=== PATIENT | male | born 1985 | race Caucasian/White ===

== ENCOUNTER 2019-03-18 14:46 | Emergency (ER) | payer OTHER ==
[2019-03-18 14:52] VITALS: BP 123/76; PULSE 87
[2019-03-18] MEDS ORDERED: Lidocaine 2% with EPINEPHrine 1:100,000 20 ML MDV INJECT ONE (15:12)
[2019-03-18] MEDS ORDERED: Bacitracin/Neomycin/Polymyxin B Oint 0.9 GM U/D Packet TOP ONE (15:59)
[2019-03-18] MEDS ORDERED: Diphtheria,Pertussis(Acell),Tetanus Vaccine 0.5 ML SDV IM ONE (16:00)
--- NOTE | 2019-03-18 16:07 | EDM.PDOC ---
ED HPI GENERAL MEDICAL PROBLEM - General Chief Complaint: Laceration Stated Complaint: fall, left knee pain, laceration Time Seen by Provider: 03/18/19 15:10 Source of Information: Reports: Patient History Limitations: Reports: No Limitations - History of Present Illness INITIAL COMMENTS - FREE TEXT/NARRATIVE: Patient is a 33-year-old who is seen in the ER with chief complaint of laceration over the inferior pole of the left knee Patient states that he was standing on a palate on a [place] where he fell off the palate hitting his left knee on the edge of the garbage can he states that he is in pain x-rays obtained of the left knee revealed no fractures small laceration about 1-1-1/2 cm area was prepped and draped 1% lidocaine applied and the wound explored no foreign bodies were seen Onset: Today Duration: Hour(s):, Constant Location: Reports: Lower Extremity, Left Quality: Reports: Ache, Stabbing Severity: Mild Improves with: Reports: Cold Therapy Worsens with: Reports: Movement Context: Reports: Trauma Associated Symptoms: Reports: Diaphoresis (On arrival) Treatments [facility]: Reports: NSAIDS Left Knee Pain Score (Numeric/FACES): 8 - Related Data Allergies Allergy/AdvReac Type Severity Reaction Status Date / Time No Known Allergies Allergy Verified 03/18/19 14:52 Home Meds: Home Meds Hydrocodone/Acetaminophen [Hydrocodon-Acetaminophen 5-325] 1 each PO Q6H PRN [History] Diclofenac Sodium [Voltaren] 75 mg PO DAILY 03/18/19 [History] Phentermine HCl 30 mg PO DAILY 03/18/19 [History] Past Medical History Genitourinary History: Reports: Renal Calculus Musculoskeletal History: Reports: Back Pain, Chronic, Other (See Below) Other Musculoskeletal History: fx back as [place] in [place] - Infectious Disease History Infectious Disease History: Reports: Chicken Pox Social & Family History - Tobacco Use Smoking Status *Q: Current Every Day Smoker Years of Tobacco use: 10 Packs/Tins Daily: 0.5 - Caffeine Use Caffeine Use: Reports: Energy Drinks - Recreational Drug Use Recreational Drug Use: No - Living Situation & Occupation Living situation: Reports: Occupation: Employed Review of Systems - Review of Systems Review Of Systems: See Below Constitutional: Reports: No Symptoms Eyes: Reports: No Symptoms Ears: Reports: No Symptoms Nose: Reports: No Symptoms Mouth/Throat: Reports: No Symptoms Respiratory: Reports: No Symptoms Cardiovascular: Reports: No Symptoms GI/Abdominal: Reports: No Symptoms Genitourinary: Reports: No Symptoms Musculoskeletal: Reports: No Symptoms Skin: Reports: No Symptoms Neurological: Reports: No Symptoms Psychiatric: Reports: No Symptoms ED EXAM, GENERAL - Physical Exam Exam: See Below Exam Limited By: No Limitations General Appearance: Alert, WD/WN, No Apparent Distress Ears: Normal External Exam, Normal Canal, Hearing Grossly Normal, Normal TMs Ear Exam: Bilateral Ear: Auricle Normal, Canal Normal, TM normal Nose: Normal Inspection, Normal Mucosa, No Blood Throat/Mouth: Normal Inspection, Normal Lips, Normal Teeth, Normal Gums, Normal Oropharynx, Normal Voice, No Airway Compromise Head: Atraumatic, Normocephalic Neck: Normal Inspection, Supple, Non-Tender, Full Range of Motion Respiratory/Chest: No Respiratory Distress, Lungs Clear, Normal Breath Sounds, No Accessory Muscle Use, Chest Non-Tender Cardiovascular: Normal Peripheral Pulses GI/Abdominal: Normal Bowel Sounds, Soft, Non-Tender, No Organomegaly, No Distention, No Abnormal Bruit, No Mass (Male) Exam: Deferred Rectal (Males) Exam: Deferred Back Exam: Normal Inspection, Full Range of Motion, NT Extremities: Joint Swelling, Leg Pain, Limited Range of Motion Neurological: Alert, Oriented, CN II-XII Intact, Normal Cognition, Normal Gait, Normal Reflexes, No Motor/Sensory Deficits Psychiatric: Normal Affect, Normal Mood Skin Exam: Wound/Incision (Clean) Lymphatic: No Adenopathy ED TRAUMA EXTREMITY PROCEDURES - Laceration/Wound Repair Left Medial Knee Appearance: Superficial, Linear, Clean Distal NVT: Neuro & Vascular Intact, No Tendon Injury Anesthetic Type: Local Local Anesthesia - Lidocaine (Xylocaine): 2% Plain Local Anesthetic Volume: 5cc Skin Prep: Chlorhexidine (Hibiciens) Exploration/Debridement/Repair: Wound Explored (No foreign bodies wound was irrigated clean) Closed With: Sutures Suture Size: 3-0 # of Sutures: 2 Suture Type: Nylon Course - Vital Signs Last Recorded V/S: Last Vital Signs Temp 98.1 F 03/18/19 14:46 Pulse 87 03/18/19 14:46 Resp 24 H 03/18/19 14:46 BP 123/76 03/18/19 14:46 Pulse Ox 100 07/30/19 14:46 - Orders/Labs/Meds Orders: Active Orders 24 hr Category Date Time Status Vaccines to be Administered [RC] PER UNIT ROUTINE Care 03/18/19 16:00 Ordered Knee 1V or 2V Lt [CR] Stat Exams 03/18/19 15:18 Taken Meds: Medications Discontinued Medications Generic Name Dose Route Start Last Admin Trade Name Freq PRN Reason Stop Dose Admin Diphtheria/Tetanus/Acell Pertussis 0.5 ml 03/18/19 16:00 Adacel IM 03/18/19 16:01 .ONCE ONE Lidocaine/Epinephrine 20 ml 03/18/19 15:12 Xylocaine 2% With Epinephrine 1:100,000 INJECT 03/18/19 15:13 ONETIME ONE Neomycin/Polymyxin/Bacitracin 1 each 03/18/19 15:59 Triple Antibiotic Oint TOP 03/18/19 16:00 ONETIME ONE Departure - Departure Time of Disposition: 16:10 Disposition: Home, Self-Care 01 Condition: Fair Clinical Impression: Broken skin Laceration of left knee Qualifiers: Encounter type: initial encounter Qualified Code(s): S81.012A - Laceration without foreign body, left knee, initial encounter - Discharge Information *PRESCRIPTION DRUG MONITORING PROGRAM REVIEWED*: No *COPY OF PRESCRIPTION DRUG MONITORING REPORT IN PATIENT CONCHA: No Instructions: Laceration Care, Adult Forms: ED Department Discharge Care Plan Goals: At this time area was prepped and draped 1% 2% lidocaine was injected Was explored closed with 2-0 nyl 2 patient tolerated well procedure please see operation note thank you patient is to continue taking the diclofenac for pain . - My Orders Last 24 Hours: My Active Orders 03/18/19 15:18 Knee 1V or 2V Lt [CR] Stat 03/18/19 16:00 Vaccines to be Administered [RC] PER UNIT ROUTINE - Assessment/Plan Last 24 Hours: My Active Orders 03/18/19 15:18 Knee 1V or 2V Lt [CR] Stat 03/18/19 16:00 Vaccines to be Administered [RC] PER UNIT ROUTINE
== END 2019-03-18 16:21 | disposition home or self-care (01) ==
LOC: LL.ED 14:46
DX: S81.012A Laceration without foreign body, left knee, initial encounter (principal); F17.210 Nicotine dependence, cigarettes, uncomplicated; Z79.899 Other long term (current) drug therapy; Z87.442 Personal history of urinary calculi; Z23 Encounter for immunization; W01.198A Fall on same level from slipping, tripping and stumbling with subsequent striking against other object, initial encounter
CPT/HCPCS: 12001; 73560-LT; 90471; 90715; 96372; 99283-25